=== PATIENT | male | born 1975 | race Caucasian/White ===

== ENCOUNTER 2018-08-13 19:59 | Emergency (ER) | payer OTHER ==
[~2018-08-13] VITALS: Ht 177.8 cm; Wt 106.4 kg
[2018-08-13 10:45] VITALS: BP 134/67
[2018-08-13] MEDS ORDERED: LORazepam 2 mg/ml vial IV ONE ×3 (20:15→21:20)
[2018-08-13] MEDS ORDERED: ondansetron/PF 4mg/2ml inj IV ONE (20:15)
[2018-08-13] MEDS ORDERED: glucagon, human recombinant 4 MG in normal saline 100ml IV soln 100 ML IV ONE ×2 (20:15)
[2018-08-13] MEDS ORDERED: normal saline 1000ML IV soln IVB ONE (20:15)
[2018-08-13] MEDS ORDERED: ketorolac trometh. 30mg/ml inj. IV ONE (21:45)
--- NOTE | 2018-08-13 22:50 | NUR ---
PT TO [facility]
[2018-08-13] MEDS ORDERED: fentaNYL/PF 50MCG/1 ML 2ML syringe ONE (22:56)
[2018-08-13] MEDS ORDERED: MIDAZolam 5mg/5ml vial ONE (22:57)
[2018-08-13] MEDS ORDERED: LIDOcaine Viscous 15ml cup ONE (22:57)
[2018-08-13 23:11] VITALS: BP 135/83
[2018-08-13 23:21] VITALS: BP 128/82
[2018-08-13 23:31] VITALS: BP 132/79
[2018-08-13 23:41] VITALS: BP 133/78
== END 2018-08-14 00:23 | disposition home or self-care (01) ==
LOC: ER 19:59
DX: T18.128A Food in esophagus causing other injury, initial encounter (principal); X58.XXXA Exposure to other specified factors, initial encounter; Y93.89 Activity, other specified; Y92.89 Other specified places as the place of occurrence of the external cause; Y99.8 Other external cause status
CPT/HCPCS: 43247; 93005; 96374; 96375; 96376; 99152; 99285; J1610; J1885; J2060; J2250; J2405; J3010; J7030; A4620